=== PATIENT | female | born 1980 | race Caucasian/White ===

== ENCOUNTER 2021-01-29 12:40 | Emergency (ER) | payer BC ==
[~2021-01-29] VITALS: Ht 162.6 cm; Wt 84.0 kg
[2021-01-29] MEDS ORDERED: IV NORMAL SALINE 1000ML BAG 1,000 ML IV ONE (13:30)
[2021-01-29] MEDS ORDERED: methylPREDNISolone SOD SUCC PF 125 MG/2 ML VIAL. IV ONE (14:00)
[2021-01-29] MEDS ORDERED: ONDANSETRON PF 4 MG/2 ML VIAL. IVP ONE (14:00)
--- NOTE | 2021-01-29 14:30 | RAD ---
INDICATION: Reason: headache, anxiety / Spl. Instructions: / History: COMPARISON: March 14, 2019 FINDINGS: Single view of chest obtained. Cardiac silhouette is unremarkable. No focal airspace consolidation or edema. No gross osseous destru ctive lesion IMPRESSION: * No focal airspace consolidation or edema. Electronically signed by: Armin Baez MD (01/29/2021 2:28 PM) [id number]
[2021-01-29 14:32] LABS: BILIRUBIN,URINE NEGATIVE (NEG); CLARITY,URINE CLEAR; NITRITE,URINE NEGATIVE (NEG); PROTEIN,URINE NEGATIVE (NEG-TRACE); UROBILINOGEN,URINE 0.2 mg/dL (0.2 mg/dL)
[2021-01-29 14:33] LABS: BASO # 0.1 x10^3/uL (0.0-0.2); BASO % 1 % (0-3); EOS # 0.1 x10^3/uL (0.0-0.7); EOS % 1 % (0-3); HEMATOCRIT 42.3 % (36.0-47.0); HEMOGLOBIN 14.8 g/dL (12.0-15.5); LYMPH # 1.8 x10^3/uL (1.0-4.8); LYMPH % 23 % (24-48); MEAN CORPUSCULAR HEMOGLOBIN 32 pg (25-35); MEAN CORPUSCULAR HGB CONC 35 g/dL (31-37); MEAN CORPUSCULAR VOLUME 91 fL (79-100); MONO # 0.6 x10^3/uL (0.0-1.1); MONO % 7 % (0-9); NEUT # 5.3 x10^3/uL (1.8-7.7); NEUT % 68 % (31-73); PLATELET COUNT 309 x10^3/uL (140-400); RED BLOOD COUNT 4.65 x10^6/uL (3.50-5.40); RED CELL DISTRIBUTION WIDTH 12.3 % (11.5-14.5); WHITE BLOOD COUNT 7.8 x10^3/uL (4.0-11.0)
[2021-01-29 14:40] LABS: BARBITURATES NEG (NEG); BENZODIAZEPINES NEG (NEG); CANNABINOIDS POS (NEG); COCAINE NEG (NEG); METHADONE NEG (NEG); OPIATES NEG (NEG); PHENCYCLIDINE NEG (NEG)
[2021-01-29 14:42] LABS: BACTERIA,URINE MANY /HPF (0-FEW); COLOR,URINE STRAW
[2021-01-29 14:44] LABS: RBC,URINE 0 /HPF (0-2); WBC,URINE RARE /HPF (0-4)
[2021-01-29 14:45] LABS: AMPHETAMINE/METHAMPHETAMINE NEG (NEG)
[2021-01-29 15:00] LABS: U PREG PATIENT NEGATIVE (NEG)
[2021-01-29 15:03] LABS: ALBUMIN 3.7 g/dL (3.4-5.0); CALCIUM 8.8 mg/dL (8.5-10.1); CREATININE 0.8 mg/dL (0.6-1.0); MAGNESIUM 2.2 mg/dL (1.8-2.4); TOTAL BILIRUBIN 0.7 mg/dL (0.2-1.0); TOTAL PROTEIN 7.5 g/dL (6.4-8.2)
--- NOTE | 2021-01-29 16:11 | RAD ---
CT head without contrast: Reason for examination: Headache and anxiety. Helical images were obtained through the brain with no contrast administered. Ventricular systems are symmetric and not abnormally dilated. No midline shift is seen. There is no e vidence of intracranial hemorrhage, infarct, mass or edema. No abnormalities of seen at the orbits. T here is some mild mucosal disease in the right posterior ethmoid air cell. Remaining paranasal sinuse s are clear. No acute calvarial abnormality is evident. IMPRESSION: Mild mucosal disease in one of the right posterior ethmoid air cells. No other acute abnormality seen in the brain. CT orbits without contrast: Helical images were obtained through the orbits with no contrast administered. Reconstruction was per formed in sagittal and coronal planes. There is some mild mucosal disease in the left maxillary antrum and posteriorly in one of the right e thmoid air cells. Remaining paranasal sinuses are clear. Within the orbits, no abnormalities are seen at the globes, optic nerves or extraocular muscles and the lacrimal glands appear to be symmetric. Z ygomatic arches are intact. No abnormalities of seen at the nasal bones. IMPRESSION: Mild mucosal disease in the left maxillary antrum and posteriorly and more of the right ethmoid air c ells. No abnormality seen at the orbits. Exposure: One or more of the following individualized dose reduction techniques were utilized for thi s examination: 1. Automated exposure control 2. Adjustment of the mA and/or kV according to patient size 3. Use of iterative reconstruction technique. Electronically signed by: Temi Boateng MD (01/29/2021 4:08 PM) ZAKIYA
[2021-01-29] MEDS ORDERED: AMOX1TAB61 PO (16:49)
--- NOTE | 2021-01-29 16:49 | PHYS DOC ---
Past Medical History Past Medical History: Anxiety, Depression Past Surgical History: Other Additional Past Surgical Histo: L KNEE SCOPE Smoking Status: Current Every Day Smoker Alcohol Use: Occasionally General Adult EDM: Chief Complaint: HEADACHE HPI: HPI: Patient is a 41 year old with history of anxiety, depression, presenting to the ED today complaining of 10 out of 10 pounding intermittent headaches dizziness, blurred vision symptoms have been going on for 1 year. Patient states the hezhen dache is behind her eyes. Patient states she followed up with her her eye doctor who told her she has papilledema and intracranial hypertension. She states she was referred to a neuro-supervisor solder making, she states she has an appointment on March 08. She also states she has an appointment with her own PCP who she has been following up for this headaches. Patient denies any vision loss. She states she has been evaluated for stroke and she was negative. Denies any nausea, vomiting. Denies anything specifically exacerbating or relieving her symptoms. She states she is very anxious. 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 She is also very tearful during the exam, she states she has had suicidal ideations and no plan. She states she usually did not seen by her PCP for depression and anxiety and was started on several medications. She states she does not take some of them because she does not believe they will do anything for her Review of Systems: Review of Systems: Constitutional: Denies fever or chills. [] Eyes: Reports pain behind her eyes. Denies change in visual acuity. [] HENT: Denies nasal congestion or sore throat. [] Respiratory: Denies cough or shortness of breath. [] Cardiovascular: Denies chest pain or edema. [] GI: Denies abdominal pain, nausea, vomiting, bloody stools or diarrhea. [] : Denies dysuria. [] Musculoskeletal: Denies back pain or joint pain. [] Integument: Denies rash. [] Neurologic: Reports headaches, denies focal weakness or sensory changes. [] Psychiatric: Denies depression or anxiety. [] Heart Score: C/O Chest Pain: N/A Risk Factors: Risk Factors: DM, Current or recent (<one month) smoker, HTN, HLP, family history of CAD, obesity. Risk Scores: Score 0 - 3: 2.5% MACE over next 6 weeks - Discharge Home Score 4 - 6: 20.3% MACE over next 6 weeks - Admit for Clinical Observation Score 7 - 10: 72.7% MACE over next 6 weeks - Early Invasive Strategies Current Medications: Current Medications Medications (Trade) Dose Ordered Sig/Doreen Start Time Stop Time Status Last Admin Dose Admin Methylprednisolone Sodium Succinate (SOLU-Medrol 125MG VIAL) 125 mg 1X ONCE 01/29/21 14:00 01/29/21 14:01 DC 01/29/21 14:35 125 MG Ondansetron HCl (Zofran) 4 mg 1X ONCE 01/29/21 14:00 01/29/21 14:01 DC 01/29/21 14:35 4 MG Sodium Chloride 1,000 ml @ 1,000 mls/hr 1X ONCE 01/29/21 13:30 01/29/21 14:29 DC 01/29/21 14:36 1,000 MLS/HR Allergies: Allergies: Allergies Coded Allergies Type Severity Reaction Last Updated Verified meperidine Allergy Intermediate RASH 01/29/21 Yes sertraline Adverse Reaction Intermediate DIARRHEA 01/29/21 Yes Physical Exam: PE: Constitutional: Well developed, well nourished, no acute distress, non-toxic appearance. [] HENT: Normocephalic, atraumatic, bilateral external ears normal, oropharynx moist, no oral exudates, nose normal. [] Eyes: PERRLA, EOMI, conjunctiva normal, no discharge. [] Neck: Normal range of motion, no tenderness, supple, no stridor. [] Cardiovascular:Heart rate regular rhythm, no murmur [] Lungs & Thorax: Bilateral breath sounds clear to auscultation [] Abdomen: Bowel sounds normal, soft, no tenderness, no masses, no pulsatile masses. [] Skin: Warm, dry, no erythema, no rash. [] Back: No tenderness, no CVA tenderness. [] Extremities: No tenderness, no cyanosis, no clubbing, ROM intact, no edema. [] Neurologic: Alert and oriented X 3, normal motor function, normal sensory function, no focal deficits noted. Cranial nerves II through XII intact Psychologic: Appears anxious, flat affect, judgement normal, mood normal. [] Current Patient Data: Labs: Laboratory Tests Test 01/29/21 14:12 White Blood Count 7.8 x10^3/uL (4.0-11.0) Red Blood Count 4.65 x10^6/uL (3.50-5.40) Hemoglobin 14.8 g/dL (12.0-15.5) Hematocrit 42.3 % (36.0-47.0) Mean Corpuscular Volume 91 fL (79-100) Mean Corpuscular Hemoglobin 32 pg (25-35) Mean Corpuscular Hemoglobin Concent 35 g/dL (31-37) Red Cell Distribution Width 12.3 % (11.5-14.5) Platelet Count 309 x10^3/uL (140-400) Neutrophils (%) (Auto) 68 % (31-73) Lymphocytes (%) (Auto) 23 % (24-48) L Monocytes (%) (Auto) 7 % (0-9) Eosinophils (%) (Auto) 1 % (0-3) Basophils (%) (Auto) 1 % (0-3) Neutrophils # (Auto) 5.3 x10^3/uL (1.8-7.7) Lymphocytes # (Auto) 1.8 x10^3/uL (1.0-4.8) Monocytes # (Auto) 0.6 x10^3/uL (0.0-1.1) Eosinophils # (Auto) 0.1 x10^3/uL (0.0-0.7) Basophils # (Auto) 0.1 x10^3/uL (0.0-0.2) Urine Collection Type Unknown Urine Color Straw Urine Clarity Clear Urine pH 6.0 (<5.0-8.0) Urine Specific [place] <=1.005 (1.000-1.030) Urine Protein Negative mg/dL (NEG-TRACE) Urine Glucose (UA) Negative mg/dL (NEG) Urine Ketones (Stick) Negative mg/dL (NEG) Urine Blood Negative (NEG) Urine Nitrite Negative (NEG) Urine Bilirubin Negative (NEG) Urine Urobilinogen Dipstick 0.2 mg/dL (0.2 mg/dL) Urine Leukocyte Esterase Negative (NEG) Urine RBC 0 /HPF (0-2) Urine WBC Rare /HPF (0-4) Urine Squamous Epithelial Cells Many /LPF Urine Bacteria Many /HPF (0-FEW) Urine Test Negative (NEG) Sodium Level 139 mmol/L (136-145) Potassium Level 4.0 mmol/L (3.5-5.1) Chloride Level 102 mmol/L (98-107) Carbon Dioxide Level 29 mmol/L (21-32) Anion Gap 8 (6-14) Blood Urea Nitrogen 17 mg/dL (7-20) Creatinine 0.8 mg/dL (0.6-1.0) Estimated GFR (Cockcroft-Gault) 79.0 BUN/Creatinine Ratio 21 (6-20) H Glucose Level 84 mg/dL (70-99) Calcium Level 8.8 mg/dL (8.5-10.1) Magnesium Level 2.2 mg/dL (1.8-2.4) Total Bilirubin 0.7 mg/dL (0.2-1.0) Aspartate Amino Transferase (AST) 16 U/L (15-37) Alanine Aminotransferase (ALT) 22 U/L (14-59) Alkaline Phosphatase 72 U/L (46-116) Troponin I Quantitative < 0.017 ng/mL (0.000-0.055) AR-Mcx-F-Type Natriuretic Peptide 37 pg/mL (0-124) Total Protein 7.5 g/dL (6.4-8.2) Albumin 3.7 g/dL (3.4-5.0) Albumin/Globulin Ratio 1.0 (1.0-1.7) Thyroid Stimulating Hormone (TSH) 1.674 uIU/mL (0.358-3.74) Urine Opiates Screen Neg (NEG) Urine Methadone Screen Neg (NEG) Urine Barbiturates Neg (NEG) Urine Phencyclidine Screen Neg (NEG) Urine Amphetamine/Methamphetamine Neg (NEG) Urine Benzodiazepines Screen Neg (NEG) Urine Cocaine Screen Neg (NEG) Urine Cannabinoids Screen Pos (NEG) Ethyl Alcohol Level < 10 mg/dL (0-10) Urine Ethyl Alcohol Neg (NEG) Laboratory Tests 01/29/21 14:12 Laboratory Tests 01/29/21 14:12 Vital Signs: Vital Signs Date Time Temp Pulse Resp B/P (MAP) Pulse Ox O2 Delivery O2 Flow Rate FiO2 01/29/21 12:42 96.5 109 18 144/91 (108) 99 Room Air 96.5 EKG: EK interpreted by Dr. Domínguez sinus rhythm heart rate 71 no STEMI [] Radiology/Procedures: Radiology/Procedures: []PROCEDURE: CT ORBITS WO CONTRAST CT head without contrast: Reason for examination: Headache and anxiety. Helical images were obtained through the brain with no contrast administered. Ventricular systems are symmetric and not abnormally dilated. No midline shift is seen. There is no evidence of intracranial hemorrhage, infarct, mass or edema. No abnormalities of seen at the orbits. There is some mild mucosal disease in the right posterior ethmoid air cell. Remaining paranasal sinuses are clear. No acute calvarial abnormality is evident. IMPRESSION: Mild mucosal disease in one of the right posterior ethmoid air cells. No other acute abnormality seen in the brain. CT orbits without contrast: Helical images were obtained through the orbits with no contrast administered. Reconstruction was performed in sagittal and coronal planes. There is some mild mucosal disease in the left maxillary antrum and posteriorly in one of the right ethmoid air cells. Remaining paranasal sinuses are clear. Within the orbits, no abnormalities are seen at the globes, optic nerves or extraocular muscles and the lacrimal glands appear to be symmetric. Zygomatic arches are intact. No abnormalities of seen at the nasal bones. IMPRESSION: Mild mucosal disease in the left maxillary antrum and posteriorly and more of the right ethmoid air cells. No abnormality seen at the orbits. Exposure: One or more of the following individualized dose reduction techniques were utilized for this examination: 1. Automated exposure control 2. Adjustment of the mA and/or kV according to patient size 3. Use of iterative reconstruction technique. Electronically signed by: Temi Galan MD (01/29/2021 4:08 PM) [facility] DICTATED and SIGNED BY: TEMI GALAN MD DATE: 01/29/21 [id number] PROCEDURE: PORTABLE CHEST 1V INDICATION: Reason: headache, anxiety / Spl. Instructions: / History: COMPARISON: March 14, 2019 FINDINGS: Single view of chest obtained. Cardiac silhouette is unremarkable. No focal airspace consolidation or edema. No gross osseous destructive lesion IMPRESSION: * No focal airspace consolidation or edema. Electronically signed by: Flo Sinclair MD (01/29/2021 2:28 PM) [id number] DICTATED and SIGNED BY: FLO SINCLAIR MD DATE: 01/29/21 [id number] 0 Course & Med Decision Making: Course & Med Decision Making Pertinent Labs and Imaging studies reviewed. (See chart for details) This is a 41-year-old female patient presenting to the ED today with headaches specifically behind her eyes for the last [address] of the head is negative for any acute findings, CT of the orbits primarily negative for any acute findings, noted for sinusitis. EKG is negative, labs are negative. Patient had suicidal ideations during the visit. Berenice from the PAT team came and talked to her. Patient was discharged to home. She has a appointment with neuro-supervisor solder making March 08 and her PCP too. Given Augmentin for sinus infection Dragon Disclaimer: Dragon Disclaimer: This electronic medical record was generated, in whole or in part, using a voice recognition dictation system. Departure Departure Impression: Primary Impression: Chronic headaches Qualified Codes: R51.9 - Headache, unspecified; G89.29 - Other chronic pain Additional Impression: Sinusitis, acute Qualified Codes: J01.10 - Acute frontal sinusitis, unspecified Disposition: 01 DC HOME SELF CARE/HOMELESS Condition: STABLE Referrals: LORRIE GARZON MD (PCP) follow up in 1 week Patient Instructions: Headache, FAQs, Sinusitis Additional Instructions: You were evaluated in the emergency room, your CT of the head and eyes, you were noted for sinus infection and put on antibiotics. Please continue following up with your doctors. Scripts Amoxicillin/Potassium Clav (AUGMENTIN 875-125 TABLET) 1 Each Tablet 1 TAB PO BID for 10 Days, #20 TAB 0 Refills Prov: JAZZ COLINDRES APRN 01/29/21 JAZZ COLINDRES APRN Jan 29, 2021 16:49
[2021-01-29 17:00] VITALS: BP 108/64
--- NOTE | 2021-01-29 17:12 | EKG ---
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
== END 2021-01-29 17:21 | disposition home or self-care (01) ==
LOC: ER 12:40
DX: G89.29 Other chronic pain (principal); R51.9 Headache, unspecified; J01.10 Acute frontal sinusitis, unspecified; R42 Dizziness and giddiness; H53.8 Other visual disturbances; F41.9 Anxiety disorder, unspecified; F32.9 Major depressive disorder, single episode, unspecified; F17.200 Nicotine dependence, unspecified, uncomplicated; Z98.890 Other specified postprocedural states; Z88.8 Allergy status to other drugs, medicaments and biological substances
CPT/HCPCS: 36415; 70450; 70480; 71045; 80053; 80307; 81001; 81025; 83735; 83880; 84443; 84484; 85025; 87086; 93005; 96361; 96374; 96375; 99285; G0480; J2405; J2930; J7030